=== PATIENT | female | born 1985 | race Two or more races ===

== ENCOUNTER 2022-12-20 14:09 | Emergency (ER) | payer SELFPAY ==
[2022-12-20] MEDS ORDERED: Ketorolac 30 MG/ML SDV IVPUSH ONE (14:39)
[2022-12-20] MEDS ORDERED: methylPREDNISolone Sodium Succinate 125 MG/2 ML SDV IVPUSH ONE (14:51)
[2022-12-20 15:29] LABS: CORONAVIRUS COVID-19 NAA NEGATIVE (NEGATIVE); INFLUENZA A NAA NEGATIVE (NEGATIVE); INFLUENZA B NAA NEGATIVE (NEGATIVE)
[2022-12-20 15:30] LABS: BLOOD UREA NITROGEN,BUN 15 mg/dL (7.0-18.0); CHLORIDE,CL 104 mmol/L (98-107); GLUCOSE RANDOM 104 mg/dL (74-106); POTASSIUM,K 3.3 mmol/L (3.5-5.1); SODIUM,NA 138 mmol/L (136-145)
[2022-12-20 15:44] LABS: ESTIMATED GFR 98 mL/min (>60)
== END 2022-12-20 16:55 | disposition home or self-care (01) ==
LOC: MW.ED 14:09
DX: M25.812 Other specified joint disorders, left shoulder (principal); R07.9 Chest pain, unspecified; Z20.822 Contact with and (suspected) exposure to COVID-19
CPT/HCPCS: 0240U; 36415; 71045; 80053; 81001; 81025; 84443; 84484; 85025; 93005; 96374; 96375; 99285; J1885; J2930